=== PATIENT | male | born 1980 | race Caucasian/White ===

== ENCOUNTER 2018-10-25 21:17 | Emergency (ER) | payer BC ==
[~2018-10-25] VITALS: Ht 165.1 cm; Wt 75.7 kg
[2018-10-25 21:43] VITALS: Ht 165.1 cm; Wt 75.7 kg
[2018-10-26 00:34] LABS: BASOPHIL % 0.6 % (0-2); PLATELET COUNT 232 x10^3mcL (130-400); RED CELL DISTRIBUTION WIDTH 12.6 % (11.5-14.5)
[2018-10-26 00:45] LABS: CALCIUM 8.4 mg/dL (8.5-10.1); CARBON DIOXIDE 27.4 mmol/L (21-32); CHLORIDE SERUM 105 mmol/L (98-107); CREATININE SERUM 0.9 mg/dL (0.7-1.3); GFR1 > 60 mL/min; GLUCOSE SERUM 126 mg/dL (74-106); POTASSIUM SERUM 3.5 mmol/L (3.5-5.1); SODIUM SERUM 141 mmol/L (136-145)
[2018-10-26 00:50] LABS: ALBUMIN 3.6 g/dL (3.4-5.0); ALKALINE PHOSPHATASE 85 U/L (46-116); ALT/SGPT 56 U/L (16-63); AST/SGOT 24 U/L (15-37); BILIRUBIN TOTAL 0.2 mg/dL (0.20-1.00); LIPASE 162 IU/L (73-393); TOTAL PROTEIN, SERUM 6.7 g/dL (6.4-8.2)
[2018-10-26 02:28] VITALS: BP 102/62
== END 2018-10-26 02:28 | disposition home or self-care (01) ==
LOC: ED 21:17
PROVIDERS: Emergency Medicine
DX: K80.70 Calculus of gallbladder and bile duct without cholecystitis without obstruction (principal)
CPT/HCPCS: 36415; J1885; Q0092

== ENCOUNTER 2020-05-12 18:34 | Emergency (ER) | payer MEDICAID ==
[~2020-05-12] VITALS: Ht 165.1 cm; Wt 80.7 kg
[2020-05-12 19:00] VITALS: Ht 165.1 cm; Wt 80.7 kg
[2020-05-12 21:53] VITALS: BP 119/78
== END 2020-05-12 21:53 | disposition home or self-care (01) ==
LOC: ED 18:34
DX: G44.209 Tension-type headache, unspecified, not intractable (principal); H93.11 Tinnitus, right ear
CPT/HCPCS: J1885